=== PATIENT | female | born 2000 | race Caucasian/White ===

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

== ENCOUNTER 2018-03-25 21:45 | Emergency (ER) ==
[2018-03-25 21:52] VITALS: BP 140/89; TEMP 99.5; BMI 39.7
--- NOTE | 2018-03-25 23:47 | ED.PDOC ---
General ED Provider: Dr. GIL ESTRADA Chief Complaint: Chest Pain Stated Complaint: nonspecific chest dscomfort Time Seen by Physician: 00:51 Mode of Arrival: Walk-In Information Source: Patient Exam Limitations: No limitations Primary Care Provider: IRAIS SOLORIO Referred to ED by: Other Nursing and Triage Documentation Reviewed and Agree: Yes Does patient meet sepsis criteria?: No System Inflammatory Response Syndrome: Not Applicable Sepsis Protocol: For patient's 13 years and over: Temp is 96.8 and below OR 101 and greater Pulse >90 BPM Resp >20/minute Acutely Altered Mental Status Are patient's symptoms suggestive of a new infection, such as: -Pneumonia -Skin, Soft Tissue -Endocarditis -UTI -Bone, Joint Infection -Implantable Device -Acute Abdominal Infection -Wound Infection -Meningitis -Blood Stream Catheter Infection -Unknown Cardiovascular Complaint Exam - Chest Pain Complaint/Exam Duration: today Symptoms Are: Still present Timing: Intermittent Initial Severity: Mild Current Severity: Mild Location: Reports: Upper sternal Pain Radiates: Reports: Right shoulder Character: Reports: Sharp Aggravating: Reports: Exertion Alleviating: Reports: Rest Related History: Reports: Similar episode Review of Systems - Review Of Systems Constitutional: Reports: No symptoms Eyes: Reports: No symptoms Ears, Nose, Mouth, Throat: Reports: No symptoms Respiratory: Reports: No symptoms Cardiac: Reports: No symptoms GI: Reports: No symptoms : Reports: No symptoms Musculoskeletal: Reports: No symptoms Skin: Reports: No symptoms Neurological: Reports: No symptoms Endocrine: Reports: No symptoms Hematologic/Lymphatic: Reports: No symptoms All Other Systems: Reviewed and Negative Past Medical History - Past Medical History Previously Healthy: Yes Endocrine: Reports: None Cardiovascular: Reports: None Respiratory: Reports: None Hematological: Reports: None Gastrointestinal: Reports: None Genitourinary: Reports: None Neuro/Psych: Reports: None Musculoskeletal: Reports: None Cancer: Reports: None Last Menstrual Period: PRESENTLY - Surgical History General Surgical History: Reports: None - Family History Family History: Reports: None - Social History Smoking Status: Never smoker Hx Substance Use: No Alcohol Screening: Occasionally - Immunizations Tetanus Shot up to Date: Yes Physical Exam - Physical Exam Appearance: Well-appearing Ill-appearing: None Pain Distress: None Eyes: EBER ENT: Ears normal Neck: Supple Respiratory: Airway patent Cardiovascular: RRR GI/: Soft Musculoskeletal: Normal strength Neurological: Sensation intact Critical Care Note - Critical Care Note Total Time (mins): 0 Course - Course Orders, Labs, Meds: Orders Category Date Time Status EKG-(ED ONLY) Stat CARDIO 03/25/18 21:58 Completed CHEST, 2 VIEWS PA & LAT Stat RADS 03/25/18 23:50 Completed Vital Signs: Temp Pulse Resp BP Pulse Ox 03/25/18 21:46 99.5 F 98 H 18 140/89 98 GARRISON Risk Score GARRISON Risk Score: Risk Score Odds of by 30D 0 0.1 (0.1-0.2) 1 0.3 (0.2-0.3) 2 0.4 (0.3-0.5) 3 0.7 (0.6-0.9) 4 1.2 (1.0-1.5) 5 2.2 (1.9-2.6) 6 3.0 (2.5-3.6) 7 4.8 (3.8-6.1) Departure - Departure Time of Disposition: 00:49 Disposition: HOME SELF-CARE Discharge Problem: Nonspecific chest pain Instructions: Chest Wall Pain (ED) Condition: Good Pt referred to PMD for follow-up: No IPMP verified?: No Allergies/Adverse Reactions: Allergies latex Adverse Reaction (Verified 03/25/18 21:52) Rash Home Medications: Ambulatory Orders Acetaminophen [Tylenol] 1 gm PO Q6H PRN 12/21/17 Disposition Discussed With: Patient
--- NOTE | 2018-03-26 00:40 | DI ---
EXAM: Two-view chest HISTORY: Chest pain COMPARISON: None. FINDINGS: The cardiomediastinal silhouette is normal. The lungs are clear bilaterally.. No osseous abnormalities are identified. IMPRESSION: No acute findings.
== END 2018-03-26 01:11 | disposition home or self-care (01) ==
LOC: ED 21:45
DX: R07.9 Chest pain, unspecified (principal)
CPT/HCPCS: 93005; 93010; 99283

== ENCOUNTER 2018-05-14 16:49 | Emergency (ER) ==
[2018-05-14 16:53] VITALS: BP 130/85; TEMP 99.6; BMI 38.8
--- NOTE | 2018-05-14 18:43 | ED.PDOC ---
General ED Provider: Dr. GUERDA CLARK Chief Complaint: Rash Stated Complaint: Rash started on forearms last night; worse today and now on legs and trunk Time Seen by Physician: 18:35 Mode of Arrival: Walk-In Information Source: Patient Exam Limitations: No limitations Primary Care Provider: IRAIS SOLORIO Nursing and Triage Documentation Reviewed and Agree: Yes Does patient meet sepsis criteria?: No System Inflammatory Response Syndrome: Not Applicable Sepsis Protocol: For patient's 13 years and over: Temp is 96.8 and below OR 101 and greater Pulse >90 BPM Resp >20/minute Acutely Altered Mental Status Are patient's symptoms suggestive of a new infection, such as: -Pneumonia -Skin, Soft Tissue -Endocarditis -UTI -Bone, Joint Infection -Implantable Device -Acute Abdominal Infection -Wound Infection -Meningitis -Blood Stream Catheter Infection -Unknown Review of Systems - Review Of Systems Constitutional: Reports: No symptoms Eyes: Reports: No symptoms Ears, Nose, Mouth, Throat: Reports: No symptoms Respiratory: Reports: No symptoms. Denies: Cough GI: Reports: No symptoms Musculoskeletal: Reports: No symptoms. Denies: Back pain Skin: Reports: Rash (Abdominal; legs bilateral) All Other Systems: Reviewed and Negative Past Medical History - Past Medical History Previously Healthy: Yes Endocrine: Reports: None Cardiovascular: Reports: None Respiratory: Reports: None Hematological: Reports: None Gastrointestinal: Reports: None Genitourinary: Reports: None Neuro/Psych: Reports: None Musculoskeletal: Reports: None Cancer: Reports: None Last Menstrual Period: [id number] - Surgical History General Surgical History: Reports: None - Family History Family History: Reports: None - Social History Smoking Status: Never smoker Hx Substance Use: No Alcohol Screening: Occasionally - Immunizations Tetanus Shot up to Date: No Physical Exam - Physical Exam Appearance: Well-appearing Eyes: EBER, EOMI ENT: Oropharynx normal Neck: Supple Respiratory: Airway patent, Breath sounds clear Cardiovascular: RRR Musculoskeletal: Normal strength, ROM intact Skin: Warm, Dry, Normal color (Except for mild erythematous rash - confluent, legs, abdomen) Neurological: Sensation intact, Alert, Oriented Psychiatric: Affect appropriate Critical Care Note - Critical Care Note Total Time (mins): 7 Course - Course Orders, Labs, Meds: Orders Category Date Time Status Dexamethasone 4 mg/ml Inj [Decadron 4 mg/ml Sdv] MEDS 05/14/18 18:46 Discontinued 8 mg IM ONCE STA Medications Discontinued Medications Generic Name Dose Route Start Last Admin Trade Name Juan PRN Reason Stop Dose Admin Dexamethasone Sodium Phosphate 8 mg 05/14/18 18:46 05/14/18 18:55 Decadron 4 Mg/Ml Sdv IM 05/14/18 18:47 8 mg ONCE STA Administration Vital Signs: Temp Pulse Resp BP Pulse Ox 05/14/18 16:49 99.6 F 100 H 20 130/85 98 Departure - Departure Time of Disposition: 18:46 Disposition: HOME SELF-CARE Discharge Problem: Rash Instructions: Acute Rash (ED) Condition: Stable Pt referred to PMD for follow-up: Yes (Follow up with primary care provider; call for appointment) IPMP verified?: No (Not applicable; no narcotic prescribed) Additional Instructions: Take 2 tablets prednisone daily starting tomorrow; also take Benadryl in addition - 25 mg every 6 hours for next 3 days. Follow up with primary care provider if not better by next <Jimmie. Prescriptions: Prednisone 40 mg PO DAILYWM #10 tablet Allergies/Adverse Reactions: Allergies latex Adverse Reaction (Verified 05/14/18 16:53) Rash Home Medications: Ambulatory Orders Prednisone 40 mg PO DAILYWM #10 tablet 05/14/18 Disposition Discussed With: Patient
[2018-05-14] MEDS ORDERED: DECADRON 10 MG/ML SDV (RHC/FCC ONLY) IM STA (18:44)
[2018-05-14] MEDS ORDERED: DECADRON 4 MG/ML SDV IM STA (18:46)
== END 2018-05-14 19:20 | disposition home or self-care (01) ==
LOC: ED 16:49
DX: R21 Rash and other nonspecific skin eruption (principal)
CPT/HCPCS: 96372; 99282

== ENCOUNTER 2018-07-14 14:25 | Emergency (ER) ==
[2018-07-14 14:30] VITALS: BP 111/73; TEMP 98.2; BMI 37.4
--- NOTE | 2018-07-14 14:49 | ED.PDOC ---
General ED Provider: Dr. IRAIS CAROLINA Chief Complaint: Extremity Pain/Injury Stated Complaint: Fell and injured rt Leg yesterday. Now has a small bruise proximal pretibial region that is tender to touch but does not affect her ambulatory ability. Time Seen by Physician: 13:00 Mode of Arrival: Walk-In Information Source: Patient Exam Limitations: No limitations Primary Care Provider: IRAIS SOLORIO Nursing and Triage Documentation Reviewed and Agree: Yes Does patient meet sepsis criteria?: No System Inflammatory Response Syndrome: Not Applicable Sepsis Protocol: For patient's 13 years and over: Temp is 96.8 and below OR 101 and greater Pulse >90 BPM Resp >20/minute Acutely Altered Mental Status Are patient's symptoms suggestive of a new infection, such as: -Pneumonia -Skin, Soft Tissue -Endocarditis -UTI -Bone, Joint Infection -Implantable Device -Acute Abdominal Infection -Wound Infection -Meningitis -Blood Stream Catheter Infection -Unknown Musculoskeletal Complaint Exam - Lower Extremity Complaint/Exam Location of Pain: Reports: Right, Leg Mechanism of Injury: Reports: Trauma Symptoms Are: Still present Onset of Pain: Reports: Immediate Initial Severity: Mild Current Severity: Moderate Location: Reports: Discrete (proximal 1/3 medial aspect) Character: Reports: Dull, Aching Alleviating: Reports: Rest Aggravating: Reports: Movement Able to Bear Weight: Yes Associated Signs and Symptoms: Reports: Bruising DVT Risk Factors: Reports: None Septic Arthritis Risk Factors: Reports: None Related Surgical History: Reports: None Lower Extremity Findings: Present: Swelling, Ecchymosis NV Bundle Intact Distal to Injury: Yes Nafisa's Sign Present: No Differential Diagnoses: Contusion, Hematoma Review of Systems - Review Of Systems Constitutional: Reports: No symptoms Eyes: Reports: No symptoms Ears, Nose, Mouth, Throat: Reports: No symptoms Respiratory: Reports: No symptoms Cardiac: Reports: No symptoms GI: Reports: No symptoms : Reports: No symptoms Musculoskeletal: Reports: No symptoms Skin: Reports: No symptoms Neurological: Reports: No symptoms Endocrine: Reports: No symptoms Hematologic/Lymphatic: Reports: No symptoms All Other Systems: Reviewed and Negative Past Medical History - Past Medical History Previously Healthy: Yes Endocrine: Reports: None Cardiovascular: Reports: None Respiratory: Reports: None Hematological: Reports: None Gastrointestinal: Reports: None Genitourinary: Reports: None Neuro/Psych: Reports: None Musculoskeletal: Reports: None Cancer: Reports: None Last Menstrual Period: current - Surgical History General Surgical History: Reports: None - Family History Family History: Reports: None - Social History Smoking Status: Never smoker Hx Substance Use: No Alcohol Screening: None - Immunizations Tetanus Shot up to Date: Yes Physical Exam - Physical Exam Appearance: Well-appearing, No pain distress, Well-nourished, Obese Ill-appearing: None Pain Distress: None Eyes: EBER, EOMI, Conjunctiva clear ENT: Ears normal, Nose normal, Oropharynx normal Respiratory: Airway patent, Breath sounds clear, Breath sounds equal, Respirations nonlabored Cardiovascular: RRR, Pulses normal, No rub, No murmur GI/: Soft, Nontender, No masses, Bowel sounds normal, No Organomegaly Musculoskeletal: Normal strength, ROM intact, No edema, No calf tenderness Skin: Warm, Dry, Normal color Neurological: Sensation intact, Motor intact, Reflexes intact, Cranial nerves intact, Alert, Oriented Psychiatric: Affect appropriate, Mood appropriate Interpretation - Radiology Interpretation Radiology Interpretation By: Radiologist Radiology Results: Negative Exam Interpreted: Other ([id number] acute abnormalities) Critical Care Note - Critical Care Note Total Time (mins): 0 Course - Course Orders, Labs, Meds: Orders Category Date Time Status TIBIA/FIBULA, RIGHT 2 VIEW Stat RADS 07/14/18 16:22 Completed Vital Signs: Temp Pulse Resp BP Pulse Ox 07/14/18 14:25 98.2 F 95 H 16 111/73 97 Departure - Departure Time of Disposition: 17:00 Disposition: HOME SELF-CARE Discharge Problem: Contusion of leg, right Instructions: Contusion in Adults (ED) Condition: Good Pt referred to PMD for follow-up: Yes IPMP verified?: No Additional Instructions: Ice application ELevate affected leg for 20 minute periods a Ibuprofen for pain relief as needed Follow up pcp as needed Allergies/Adverse Reactions: Allergies latex Adverse Reaction (Verified 07/14/18 14:34) Rash Home Medications: Ambulatory Orders 1 [No Reported Medications] 07/14/18 Disposition Discussed With: Patient
--- NOTE | 2018-07-14 16:51 | DI ---
EXAM: Right lower leg. Two-view HISTORY: Fell, contusion right leg COMPARISON: None FINDINGS: The bones are normal. Alignment is normal. No focal soft tissue abnormality. IMPERSSION: Normal examination.
== END 2018-07-14 17:26 | disposition home or self-care (01) ==
LOC: ED 14:25
DX: S80.11XA Contusion of right lower leg, initial encounter (principal); W19.XXXA Unspecified fall, initial encounter
CPT/HCPCS: 99282

== ENCOUNTER 2018-09-28 16:22 | Emergency (ER) ==
[2018-09-28 16:32] VITALS: BP 139/88; TEMP 98.3; BMI 35.9
[2018-09-28] MEDS ORDERED: LIDOCAINE HCL 1% SDV IM STA (17:44)
[2018-09-28] MEDS ORDERED: ROCEPHIN 1 GM VIAL IM STA (17:44)
--- NOTE | 2018-09-28 17:47 | ED.PDOC ---
General ED Provider: Dr. LEW BURGER Chief Complaint: Abdominal Pain Stated Complaint: abdominal pain lower abdomen Time Seen by Physician: 16:30 (iris present at all times ) Mode of Arrival: Walk-In Information Source: Patient Exam Limitations: No limitations Primary Care Provider: IRAIS SOLORIO Nursing and Triage Documentation Reviewed and Agree: Yes Does patient meet sepsis criteria?: No If yes, has appropriate treatment been initiated?: No System Inflammatory Response Syndrome: Not Applicable Sepsis Protocol: For patient's 13 years and over: Temp is 96.8 and below OR 101 and greater Pulse >90 BPM Resp >20/minute Acutely Altered Mental Status Are patient's symptoms suggestive of a new infection, such as: -Pneumonia -Skin, Soft Tissue -Endocarditis -UTI -Bone, Joint Infection -Implantable Device -Acute Abdominal Infection -Wound Infection -Meningitis -Blood Stream Catheter Infection -Unknown GI Complaint Exam - Abdominal Pain Complaint/Exam Onset: Gradual Duration: 7 days Symptoms Are: Still present Timing: Constant Current Severity: Mild Location of Pain: Suprapubic Character: Reports: Aching Aggravating: Reports: None Alleviating: Reports: None Associated Signs and Symptoms: Denies: Diaphoresis, Fever, Cough, Chest pain, Dizziness, Back pain, Constipation, Blood in stool, Dysuria, Urinary frequency, Decreased urine output, Decreased appetite, Vaginal bleeding, Vaginal discharge , Nausea, Vomiting, Diarrhea, Sore throat, Decreased activity Related History: Reports: Similar episode : 0 Para: 0 Hx Total # of Abortions (Spontaneous & Elective): 0 AAA Risk Factors: Reports: None Cardiac Risk Factors: Reports: None Ectopic Risk Factors: Reports: None Ovarian Torsion Risk Factors: Reports: None Surgical Obstruction Risk Factors: Reports: None Related Surgical History: Reports: None Patient Rh Status: Unknown Differential Diagnoses: UTI Review of Systems - Review Of Systems Constitutional: Reports: No symptoms Eyes: Reports: No symptoms Ears, Nose, Mouth, Throat: Reports: No symptoms Respiratory: Reports: No symptoms Cardiac: Reports: No symptoms GI: Reports: Abdominal pain (lower abdomen suprapubic) : Reports: No symptoms Musculoskeletal: Reports: No symptoms Skin: Reports: No symptoms Neurological: Reports: No symptoms Endocrine: Reports: No symptoms Hematologic/Lymphatic: Reports: No symptoms All Other Systems: Reviewed and Negative Past Medical History - Past Medical History Previously Healthy: Yes Endocrine: Reports: None Cardiovascular: Reports: None Respiratory: Reports: None Hematological: Reports: None Gastrointestinal: Reports: None Genitourinary: Reports: None Neuro/Psych: Reports: None Musculoskeletal: Reports: None Cancer: Reports: None Last Menstrual Period: september 12 - Surgical History General Surgical History: Reports: None - Family History Family History: Reports: None - Social History Smoking Status: Never smoker Hx Substance Use: No Alcohol Screening: None Physical Exam - Physical Exam Appearance: Well-appearing, No pain distress, Well-nourished Eyes: EBER, EOMI, Conjunctiva clear ENT: Ears normal, Nose normal, Oropharynx normal Respiratory: Airway patent, Breath sounds clear, Breath sounds equal, Respirations nonlabored Cardiovascular: RRR, Pulses normal, No rub, No murmur GI/: Soft, Nontender, No masses, Bowel sounds normal, No Organomegaly Musculoskeletal: Normal strength, ROM intact, No edema, No calf tenderness Skin: Warm, Dry, Normal color Neurological: Sensation intact, Motor intact, Reflexes intact, Cranial nerves intact, Alert, Oriented Psychiatric: Affect appropriate, Mood appropriate Critical Care Note - Critical Care Note Total Time (mins): 0 Course - Course Hematology/Chemistry: 09/28/18 17:26 09/28/18 17:26 Orders, Labs, Meds: Lab Review 09/28/18 09/28/18 09/28/18 17:26 17:26 17:26 WBC 5.69 RBC 4.66 Hgb 11.4 L Hct 36.5 L MCV 78.3 L MCH 24.5 L MCHC 31.2 L RDW Coeff of Brenda 15.2 H Plt Count 287 Immature Gran % (Auto) 0.2 Neut % (Auto) 49.2 Lymph % (Auto) 36.9 Angelina % (Auto) 11.4 H Eos % (Auto) 1.4 Baso % (Auto) 0.9 Immature Gran # (Auto) 0.0 Neut # (Auto) 2.8 Lymph # (Auto) 2.1 Angelina # (Auto) 0.7 Eos # (Auto) 0.1 Baso # (Auto) 0.1 Sodium 141.3 Potassium 3.82 Chloride 104.0 Carbon Dioxide 22.5 Anion Gap 18.62 BUN 8.6 Creatinine 0.72 Estimated GFR (MDRD) 103.00 BUN/Creatinine Ratio 11.94 Glucose 82.4 Calcium 9.09 Total Bilirubin 0.44 AST 23.3 ALT 24.4 Alkaline Phosphatase 66.1 Total Protein 8.12 Albumin 4.95 Globulin 3.17 Albumin/Globulin Ratio 1.56 Serum , Qual Negative Urine Color Urine Clarity Urine pH Ur Specific Gay Urine Protein Urine Glucose (UA) Urine Ketones Urine Blood Urine Nitrite Urine Bilirubin Urine Urobilinogen Ur Leukocyte Esterase Urine Microscopic WBC Ur Squamous Epith Cells Urine Bacteria 09/28/18 17:26 WBC RBC Hgb Hct MCV MCH MCHC RDW Coeff of Brenda Plt Count Immature Gran % (Auto) Neut % (Auto) Lymph % (Auto) Angelina % (Auto) Eos % (Auto) Baso % (Auto) Immature Gran # (Auto) Neut # (Auto) Lymph # (Auto) Angelina # (Auto) Eos # (Auto) Baso # (Auto) Sodium Potassium Chloride Carbon Dioxide Anion Gap BUN Creatinine Estimated GFR (MDRD) BUN/Creatinine Ratio Glucose Calcium Total Bilirubin AST ALT Alkaline Phosphatase Total Protein Albumin Globulin Albumin/Globulin Ratio Serum , Qual Urine Color Yellow Urine Clarity Slightly Urine pH 7.5 Ur Specific Gay 1.015 Urine Protein Negative Urine Glucose (UA) Negative Urine Ketones Negative Urine Blood Negative Urine Nitrite Positive Urine Bilirubin Negative Urine Urobilinogen 0.2 Ur Leukocyte Esterase Trace Urine Microscopic WBC 0-2 Ur Squamous Epith Cells 0-2 Urine Bacteria 2+ Orders Category Date Time Status CBC W/ AUTO DIFF Stat LAB 09/28/18 17:26 Completed COMPREHENSIVE METABOLIC PANEL Stat LAB 09/28/18 17:26 Completed SERUM Stat LAB 09/28/18 17:26 Completed URINALYSIS C & S IF INDICATED Stat LAB 09/28/18 17:26 Completed URINE CULTURE Stat LAB 09/28/18 17:26 Received Ceftriaxone 1 gm Vial [Rocephin 1 gm Vial] MEDS 09/28/18 17:44 Stat 1 gm IM ONCE STA Lidocaine HCl/Pf [Lidocaine HCl 1% Sdv] MEDS 09/28/18 17:44 Stat 2.1 ml IM ONCE STA CT CERVICAL SPINE W/O CONTRAST Stat RADS 09/28/18 17:44 Ordered Medications Generic Name Dose Route Start Last Admin Trade Name Freq PRN Reason Stop Dose Admin Ceftriaxone Sodium 1 gm 09/28/18 17:44 Rocephin 1 Gm Vial IM 09/28/18 17:45 ONCE STA Lidocaine HCl 2.1 ml 09/28/18 17:44 Lidocaine Hcl 1% Sdv IM 09/28/18 17:45 ONCE STA Vital Signs: Temp Pulse Resp BP Pulse Ox 09/28/18 16:26 98.3 F 89 18 139/88 98 Departure - Departure Time of Disposition: 17:49 Disposition: HOME SELF-CARE Discharge Problem: Abdominal pain UTI (urinary tract infection) Qualifiers: Urinary tract infection type: site unspecified Hematuria presence: without hematuria Qualified Code(s): N39.0 - Urinary tract infection, site not specified Instructions: Abdominal Pain (ED), Urinary Tract Infection in Women (ED) Condition: Good Pt referred to PMD for follow-up: Yes IPMP verified?: No Additional Instructions: Please call your Family Physician as soon as possible to schedule a follow-up appointment. Prescriptions: Sulfamethoxazole/Trimethoprim [Bactrim Ds 800/160 mg] 1 tab PO Q12HR #10 tablet Allergies/Adverse Reactions: Allergies latex Adverse Reaction (Verified 09/28/18 16:31) Rash Home Medications: Ambulatory Orders Sumatriptan Succinate [Imitrex] 50 mg PO PRN PRN 09/25/18 Sulfamethoxazole/Trimethoprim [Bactrim Ds 800/160 mg] 1 tab PO Q12HR #10 tablet 09/28/18 Disposition Discussed With: Patient
== END 2018-09-28 18:16 | disposition home or self-care (01) ==
LOC: ED 16:22
DX: N39.0 Urinary tract infection, site not specified (principal); R10.9 Unspecified abdominal pain
CPT/HCPCS: 36415; 80053; 81001; 84703; 85025; 87086; 87186; 96372; 99283

== ENCOUNTER 2018-10-05 08:11 | Outpatient (CLI) ==
[2012-08-08 20:48] VITALS: TEMP 99.2
--- NOTE | 2018-10-05 09:45 | US ---
EXAM: Ultrasound abdomen limited right upper quadrant HISTORY: Epigastric pain COMPARISON: None TECHNIQUE: Limited ultrasound abdomen right upper quadrant was performed FINDINGS: Pancreas obscured secondary to bowel gas shadowing. Liver normal in size and echogenicity . Main portal vein patent with normal direction of flow. Probable shadowing gallstones versus less likely gallbladder sludge. No gallbladder wall thickening. No pericholecystic fluid. No biliary du ct dilation with common bile duct measuring 0.5 cm. IMPRESSION: Probable cholelithiasis versus less likely gallbladder sludge. No gallbladder wall thic [place].
== END 2018-10-05 08:12 | disposition home or self-care (01) ==
LOC: RAD 08:11
PROVIDERS: ATTEND Family Medicine
DX: R10.13 Epigastric pain (principal)